=== PATIENT | female | born 1955 | race Caucasian/White ===

== ENCOUNTER → 2017-08-26 | Outpatient (CLI) | payer BC ==
[~2017-08-26] MED LIST: ASPIRIN81 M2 PO; GLUCOTROL XL10 MG PO; IRON PO; IRON18 MG PO; MAGNESIUM250 MG PO; MOBIC15 MG PO; MULTIVITAMIN1 EAC2 PO; NABUMETONE500 MG PO; NIACIN500 M1 PO; PANTOPRAZOLE SO40 MG PO; PRILOSEC40 MG PO; PRINIVIL10 MG PO; VERAPAMIL HCL240 MG PO; VITAMIN B-6100 MG PO; VITAMIN B12-FO1 EACH PO; VITAMIN D250000 UNIT PO; VITAMIN D31000 UNIT PO
== END | disposition home or self-care (01) ==
LOC: CDC 11:58
DX: Z01.810 Encounter for preprocedural cardiovascular examination (principal); M65.311 Trigger thumb, right thumb; M65.321 Trigger finger, right index finger; M65.351 Trigger finger, right little finger
CPT/HCPCS: 93000